=== PATIENT | male | born 1975 | race Caucasian/White ===

== ENCOUNTER 2023-10-13 18:47 | Inpatient (IN) | payer MEDICAID, OTHER ==
[~2023-10-13] VITALS: Ht 165.1 cm; Wt 92.5 kg
[2023-10-13] MEDS ORDERED: ONDANSETRON HCL/PF 4 MG/2 ML VIAL ONE (19:44)
[2023-10-13] MEDS ORDERED: PANTOPRAZOLE 40 MG VIAL ONE (19:44)
[2023-10-13] MEDS ORDERED: OCTREOTIDE 100 MCG/ML VIAL ONE (19:44)
[2023-10-13] MEDS: ONDANSETRON HCL/PF 4 MG/2 ML VIAL IVP ONE (19:45)
[2023-10-13] MEDS: PANTOPRAZOLE 40 MG VIAL IV ONE (19:47)
[2023-10-13] MEDS: OCTREOTIDE 50 MCG/ML AMPUL IV ONE (19:52)
[2023-10-13 20:30] LABS: HEMATOCRIT 24 % (39-51); HEMOGLOBIN 8.1 g/dL (13.5-17.5); LYMPHOCYTES # (AUTO) 1.7 K/uL (0.8-4.8); LYMPHOCYTES % (AUTO) 12.4 % (20.0-44.0); MEAN CORPUSCULAR HEMOGLOBIN 34 PG (26.0-33.0); MEAN CORPUSCULAR HGB CONC 34 g/dl (31.0-36.0); MEAN CORPUSCULAR VOLUME 101 fL (80-96); MONOCYTES # (AUTO) 0.8 K/uL (0.1-1.30); MONOCYTES % (AUTO) 6.2 % (2.0-12.0); NEUTROPHILS # (AUTO) 11.1 K/uL (1.8-8.9); NEUTROPHILS % (AUTO) 81.4 % (43.0-81.0); PLATELET COUNT (AUTO) 119 K/uL (150-450); RED BLOOD CELL COUNT(AUTO) 2.34 MIL/uL (4.5-6.0); RED CELL DISTRIBUTION WIDTH 15.5 % (11.5-15.0); WHITE BLOOD COUNT (AUTO) 13.7 K/uL (4.3-11.0)
[2023-10-13 20:56] LABS: CALCIUM, SERUM 8.2 mg/dL (8.5-10.1); CREATININE 1.7 mg/dL (0.6-1.3); POTASSIUM 3.7 mmol/L (3.5-5.1)
[2023-10-13 21:06] LABS: ALBUMIN 2.5 g/dL (3.4-5.0); BILIRUBIN,DIRECT 0.8 mg/dL (0.0-0.2); TOTAL PROTEIN, SERUM 6.1 g/dL (6.4-8.2)
[2023-10-13 21:10] LABS: INR 1.44 (0.91-1.10); PARTIAL THROMBOPLASTIN TIME 23.8 SEC (24.3-34.3); PROTHROMBIN TIME 14.9 SECS (9.2-11.1)
[2023-10-13] MEDS: IV NS 0.9% 1,000 ML IV ONE (21:30)
[2023-10-13 22:16] LABS: LYMPHOCYTES % (MANUAL) 9 % (16-48); MONOCYTES % (MANUAL) 9 % (0-11.0); NEUTROPHILS % (MANUAL) 82 (42-76); PLATELET ESTIMATE DECREASED
[2023-10-13 22:18] LABS: ANISOCYTOSIS 1+
[2023-10-13] MEDS ORDERED: PHARMACY ADD 1 AMP MVI TO IVF DAILY ONE BAG XX (22:30)
[2023-10-13] MEDS: LORAZEPAM INJ 2 MG/ML VIAL IV PRN (23:12)
[2023-10-13] MEDS ORDERED: Thiamine 100 MG/ML VIAL ONE (23:18)
[2023-10-13] MEDS ORDERED: MVI-12 10ML IV ONE ×2 (23:18→23:26)
[2023-10-13] MEDS ORDERED: Folic acid 1 MG/0.2 ML VIAL ONE (23:18)
[2023-10-13] MEDS: Folic acid 1 MG in IV D5W 50 ML IV ONE (23:23)
[2023-10-14] VITALS (34 sets, daily range): BP systolic 0–158; BP diastolic 11–122; TEMP 97–99.7; O2SAT 0–100
[2023-10-14] MEDS: MVI ADULT 10ML VIAL = 1AMP 10 ML in IV NS 0.9% 1,000 ML IV ONE (00:10)
[2023-10-14] MEDS: Thiamine 100 MG in IV D5W 50 ML IV ONE (00:18)
[2023-10-14] MEDS ORDERED: PIPERACILLIN /TAZOBACTAM 3.375 G in IV D5W 100 ML IV SCH (02:00)
[2023-10-14 06:33] LABS: ALBUMIN 2.4 g/dL (3.4-5.0); BILIRUBIN,DIRECT 1.1 mg/dL (0.0-0.2); BILIRUBIN,TOTAL 2.7 mg/dL (0.2-1.0); CALCIUM, SERUM 7.9 mg/dL (8.5-10.1); CREATININE 1.3 mg/dL (0.6-1.3); MAGNESIUM 1.7 mg/dL (1.8-2.4); PHOSPHORUS 3.5 mg/dL (2.5-4.9); POTASSIUM 3.8 mmol/L (3.5-5.1); TOTAL PROTEIN, SERUM 5.8 g/dL (6.4-8.2)
[2023-10-14 06:37] LABS: BASOPHILS % (AUTO) 0.1 % (0.0-2.0); HEMATOCRIT 21 % (39-51); HEMOGLOBIN 7.3 g/dL (13.5-17.5); LYMPHOCYTES # (AUTO) 2.8 K/uL (0.8-4.8); LYMPHOCYTES % (AUTO) 14.6 % (20.0-44.0); MEAN CORPUSCULAR HEMOGLOBIN 35 PG (26.0-33.0); MEAN CORPUSCULAR HGB CONC 34 g/dl (31.0-36.0); MEAN CORPUSCULAR VOLUME 101 fL (80-96); MONOCYTES # (AUTO) 1.2 K/uL (0.1-1.30); MONOCYTES % (AUTO) 6.5 % (2.0-12.0); NEUTROPHILS % (AUTO) 78.8 % (43.0-81.0); PLATELET COUNT (AUTO) 120 K/uL (150-450); RED BLOOD CELL COUNT(AUTO) 2.12 MIL/uL (4.5-6.0); RED CELL DISTRIBUTION WIDTH 14.9 % (11.5-15.0)
[2023-10-14 06:47] LABS: THYROID STIMULATING HORMONE 0.45 uIU/mL (0.358-3.74)
[2023-10-14] MEDS: PANTOPRAZOLE 40 MG VIAL IV SCH (08:28)
[2023-10-14] MEDS: THIAMINE HCL 100 MG TABLET PO SCH (08:28)
[2023-10-14] MEDS: FOLIC ACID 1 MG TABLET PO SCH (08:28)
[2023-10-14] MEDS: MULTIVITAMINS,THERAGRAN 1 UDTAB TABLET PO SCH (08:28)
[2023-10-14] MEDS: Magnesium 1GM/D5W 100ML PREMIX 100 ML IV SCH (10:31)
[2023-10-14] MEDS ORDERED: IV NS 0.9% 1,000 ML BAG IV PRN (18:00)
[2023-10-14] MEDS: CEFTRIAXONE 1 G in IV D5W 50 ML IV SCH (18:30)
[2023-10-14] MEDS ORDERED: ATROPINE SULFATE 1 MG/10 ML DISP.SYRIN IV ONE ×2 (18:40→23:17)
[2023-10-14] MEDS: OCTREOTIDE 50 MCG in IV NS 0.9% 50 ML IJ ONE (19:09)
[2023-10-14] MEDS: IV NS 0.9% 1,000 ML IV PRN (19:10)
[2023-10-14] MEDS: OCTREOTIDE 1,250 MCG in IV NS 0.9% 247.5 ML IV PRN (19:19)
[2023-10-14] MEDS: NOREPINEPHRINE 8 MG in IV D5W 242 ML IV PRN (19:30)
[2023-10-14] MEDS: SODIUM BICARBONATE SYR 50 MEQ/50 ML DISP.SYRIN IV ONE (19:53)
[2023-10-14 20:10] LABS: BASOPHILS % (AUTO) 0.2 % (0.0-2.0); EOSINOPHILS # (AUTO) 0.1 K/uL (0.0-0.7); EOSINOPHILS % (AUTO) 0.4 % (0.0-6.0); HEMATOCRIT 21 % (39-51); LYMPHOCYTES # (AUTO) 4.6 K/uL (0.8-4.8); LYMPHOCYTES % (AUTO) 25.9 % (20.0-44.0); MEAN CORPUSCULAR HEMOGLOBIN 34 PG (26.0-33.0); MEAN CORPUSCULAR HGB CONC 29 g/dl (31.0-36.0); MEAN CORPUSCULAR VOLUME 116 fL (80-96); MONOCYTES # (AUTO) 1.2 K/uL (0.1-1.30); MONOCYTES % (AUTO) 6.7 % (2.0-12.0); NEUTROPHILS # (AUTO) 11.9 K/uL (1.8-8.9); NEUTROPHILS % (AUTO) 66.8 % (43.0-81.0); PLATELET COUNT (AUTO) 93 K/uL (150-450); RED CELL DISTRIBUTION WIDTH 21.9 % (11.5-15.0); WHITE BLOOD COUNT (AUTO) 17.7 K/uL (4.3-11.0)
[2023-10-14] MEDS: PHENYLEPHRINE 100 MG in IV NS 0.9% 240 ML IV PRN (20:10)
[2023-10-14 20:16] LABS: CALCIUM, SERUM 7.6 mg/dL (8.5-10.1); CREATININE 2.6 mg/dL (0.6-1.3)
[2023-10-14 20:21] LABS: RED BLOOD CELL COUNT(AUTO) 1.79 MIL/uL (4.5-6.0)
[2023-10-14] MEDS: METOCLOPRAMIDE HCL 10 MG/2 ML VIAL IV ONE (20:29)
[2023-10-14] MEDS: VASOPRESSIN INJ 40 UNIT in IV NS 0.9% 38 ML IV PRN (20:41)
[2023-10-14] MEDS: Sodium Bicarbonate 150 MEQ in IV D5W 1,000 ML IV SCH (20:42)
[2023-10-14] MEDS: VANCOMYCIN 1.5 GM in IV D5W 500 ML IV ONE (20:47)
[2023-10-14] MEDS: NOREPINEPHRINE 32 MG in IV NS 0.9% 218 ML IV PRN (20:57)
[2023-10-14] MEDS ORDERED: IV NS 0.9% 250 ML IV PRN (21:00)
[2023-10-14] MEDS: PIPERACILLIN /TAZOBACTAM 4.5 G in IV D5W 100 ML IV ONE (21:06)
[2023-10-14] MEDS: Calcium Gluconate 0.465 MEQ/ML VIAL IV ONE (21:14)
[2023-10-14] MEDS: DEXTROSE 50%-WATER 50 ML DISP.SYRIN IVP ONE (21:15)
[2023-10-14] MEDS: INSULIN REGULAR, HUMAN 100 UNIT/ML 10 ML VIAL IV ONE (21:16)
[2023-10-14] MEDS: ALBUTEROL FS 2.5 MG/0.5 ML VIAL.NEB NEB ONE (21:25)
[2023-10-14 22:01] LABS: LYMPHOCYTES % (MANUAL) 27 % (16-48); MONOCYTES % (MANUAL) 7 % (0-11.0); NEUTROPHILS % (MANUAL) 66 (42-76)
[2023-10-14] MEDS: PROPOFOL 100 ML IV PRN (22:04)
[2023-10-14 22:06] LABS: ANISOCYTOSIS 1+; PLATELET ESTIMATE DECREASED; STOMATOCYTES 1+
[2023-10-14] MEDS ORDERED: VASOPRESSIN INJ 20 UNIT/ML VIAL ONE (22:44)
[2023-10-14] MEDS ORDERED: CALCIUM CHLORIDE 1,000 MG/10 ML DISP.SYRIN ONE (23:03)
[2023-10-14] MEDS ORDERED: EPINEPHRINE (1:10,000) SYRINGE 1 MG/10 ML DISP.SYRIN ONE (23:11)
[2023-10-14] MEDS ORDERED: EPINEPHRINE (1:10,000) SYRINGE 1 MG/10 ML DISP.SYRIN IVP ONE (23:17)
[2023-10-15] MEDS ORDERED: PIPERACILLIN /TAZOBACTAM 3.375 G in IV D5W 100 ML IV SCH (02:00)
[2023-10-15] MEDS ORDERED: VANCOMYCIN 1 GM in IV D5W 250 ML IV SCH (08:00)
== END 2023-10-14 23:18 | DRG 253 ==
LOC: ER 18:50 → TELE-TD 21:50 → TELE1 10-14 10:10 → ICU 10-14 17:23
PROVIDERS: ADMIT Nurse Practitioner Family
PROC: 5A1935Z Respiratory Ventilation, Less than 24 Consecutive Hours (ICD-10-PCS; principal; 2023-10-14)
PROC: 5A12012 Performance of Cardiac Output, Single, Manual (ICD-10-PCS; 2023-10-14)
PROC: 30233N1 Transfusion of Nonautologous Red Blood Cells into Peripheral Vein, Percutaneous Approach (ICD-10-PCS; 2023-10-14)
PROC: 02HV33Z Insertion of Infusion Device into Superior Vena Cava, Percutaneous Approach (ICD-10-PCS; 2023-10-14)
PROC: B548ZZA Ultrasonography of Superior Vena Cava, Guidance (ICD-10-PCS; 2023-10-14)
PROC: 0BH18EZ Insertion of Endotracheal Airway into Trachea, Via Natural or Artificial Opening Endoscopic (ICD-10-PCS; 2023-10-14)
PROC: 03H Upper Arteries, Insertion (ICD-10-PCS; 2023-10-14)
DX: K92.2 Gastrointestinal hemorrhage, unspecified (principal); N17.0 Acute kidney failure with tubular necrosis; G93.41 Metabolic encephalopathy; E44.0 Moderate protein-calorie malnutrition; D69.6 Thrombocytopenia, unspecified; E87.1 Hypo-osmolality and hyponatremia; E88.09 Other disorders of plasma-protein metabolism, not elsewhere classified; K74.60 Unspecified cirrhosis of liver; E86.0 Dehydration; K86.1 Other chronic pancreatitis; D53.9 Nutritional anemia, unspecified; E83.42 Hypomagnesemia; E86.1 Hypovolemia; F10.129 Alcohol abuse with intoxication, unspecified; Y90.8 Blood alcohol level of 240 mg/100 ml or more; R74.01 Elevation of levels of liver transaminase levels; E80.6 Other disorders of bilirubin metabolism; R73.9 Hyperglycemia, unspecified; E87.5 Hyperkalemia
CPT/HCPCS: 31720; 36415; 36569; 36600; 71045-TC; 80048-TC; 80076-TC; 82150-TC; 82803-TC; 82962-TC; 83690-TC; 83735-TC; 84100-TC; 84443-TC; 85025-TC; 85730-TC; 86850-TC; 87040-TC; 92950-TC; 94002-TC; 94003-TC; 94799-TC; A4223; G0378; G0480; J0171; J0330; J0461; J0610; J0696; J1815; J2060; J2354; J2405; J2470; J2543; J2765; J3370; J3371; J3411; J3475; J3490; J7030; J7040; J7050; J7060; J7070; P9016